=== PATIENT | female | born 1950 | race Two or more races ===

== ENCOUNTER 2022-11-13 10:54 | Emergency (ER) | payer MEDICARE, MEDICAID ==
[~2022-11-13] VITALS: Ht 157.5 cm; Wt 83.1 kg
[2022-11-13 14:20] VITALS: BP 108/66; PULSE 76; RESP 18; O2SAT 99
[2022-11-13] MEDS ORDERED: HYDROcodone-ACET 5/325MG TAB PO ONE (14:45)
[2022-11-13] MEDS ORDERED: TRAM50TA2 PO (14:47)
== END 2022-11-13 19:00 | disposition left against medical advice (07) ==
LOC: ER 10:54
DX: M62.838 Other muscle spasm (principal); M50.30 Other cervical disc degeneration, unspecified cervical region; M25.511 Pain in right shoulder; E07.9 Disorder of thyroid, unspecified
CPT/HCPCS: 72040; 72125; 73030

== ENCOUNTER 2024-07-12 12:10 | Emergency (ER) | payer MEDICARE, MEDICAID ==
[~2024-07-12] VITALS: Ht 154.9 cm; Wt 81.7 kg
[~2024-07-12 12:10] MED LIST: TRAM50TA2 PO
--- NOTE | 2024-07-12 12:29 | ED.PDOC ---
History of present illness HPI Comments 74 y.o female with PMHx of DM, HTN, hyperlipidemia, and glaucoma, presents to the ED for a chief complaint of upper abdominal pain associated with nausea and vomiting that started one day ago. Patient reports pain is constant, non radiating, and has no alleviating factors. Patient's son who brought her in stat es patient's blood glucose at home had been reading high, last reading read 580 with elevated blood pressure as well. Patient reports being compliant with medications. Son mentions 4 days ago going out to eat and believes it is due to possible food poisoning. Patient denies any dysuria, fever, chills, diarrhea, or constipation. Time Seen by MD: 12:20 Primary Care Provider: NONE History of present illness: Nurses Notes, Medications, Allergies Allergies: Coded Allergies: NO KNOWN ALLERGIES (Unverified , 11/13/22) Home Meds Active Scripts Tramadol Hcl (Tramadol Hcl) 50 Mg Tab, 0.5 TAB PO Q6HR, #5 TAB as needed for pain Prov:DIONTE RICHARDSON NP 11/13/22 Information Source: Patient, Relative Mode of Arrival: Ambulatory Timing: Days (1) Duration: Since onset History of: Diabetes Modifying factors: Nothing Associated signs and symptoms: Abdominal Pain, Nausea, Vomiting Past Medical History PAST MEDICAL HISTORY: DM, High Lipids, HTN Surgical History: Denies all surgeries [employer] History: No Pertinent [employer] History Social History Smoker: Non-Smoker Alcohol: Denies ETOH Use Drugs: Denies Drug Use Lives In: Home Constitutional: denies: chills, diaphoresis, fatigue, fever, malaise, sweats, weakness, others EENTM: denies: blurred vision, double vision, ear bleeding, ear discharge, ear drainage, ear pain, ear ringing, eye pain, eye redness, hearing loss, mouth pain, mouth swelling, nasal discharge, nose bleeding, nose congestion, nose pain, photophobia, tearing, throat pain, throat swelling, voice changes, others Respiratory: denies: cough, hemoptysis, orthopnea, SOB at rest, shortness of breath, SOB with excertion, stridor, wheezing, others Cardiovascular: denies: chest pain, dizzy spells, diaphoresis, Dyspnea on exertion, edema, irregular heart beat, left arm pain, lightheadedness, palpitations, PND, syncope, others Gastrointestinal: reports: abdominal pain, nausea, vomiting; denies: abdomen distended, blood streaked bowels, constipated, diarrhea, dysphagia, difficulty swallowing, hematemesis, melena, poor appetite, poor fluid intake, rectal bleeding, rectal pain, others Genitourinary: denies: abnormal vagina bleeding, burning, dyspareunia, dysuria, flank pain, frequency, hematuria, incontinence, pain, , vagina discharge, urgency, others Neurological: denies: dizziness, fainting, headache, left sided numbness, left sided weakness, numbness, paresthesia, pre-existing deficit, right sided numbness, right sided weakness, seizure, speech problems, tingling, tremors, weakness, others Musculoskeletal: denies: back pain, gout, joint pain, joint swelling, muscle pain, muscle stiffness, neck pain, others Integumetry: denies: bruises, change in color, change in hair/nails, dryness, laceration, lesions, lumps, rash, wounds, others Allergic/Immunocompromised: denies: Difficulty Healing, Frequent Infections, Hives, Itching, others Hematologic/Lymphatic: denies: anemia, blood clots, easy bleeding, easy bruising, swollen glands, others Endocrine: denies: excessive hunger, excessive sweating, excessive thirst, excessive urination, flushing, intolerance to cold, intolerance to heat, unexplained weight gain, unexplained weight loss, others Psychiatric: denies: anxiety, bipolar disorder, depression, hopeless, panic disorder, schizophrenia, sleepless, suicidal, others All Other Systems: Reviewed and Negative Physical Exam General Appearance: Mild Distress, Obese HEENT: Other (Pupils and face symmetric. Moist mucous membranes.) Neck: Full Range of Motion, Normal Inspection Respiratory: Lungs Clear, No Accessory Muscle Use, No Respiratory Distress, Normal Breath Sounds Cardiovascular: No Edema, No JVD, Regular Rate/Rhythm Breast Exam: Deferred Gastrointestinal: Epigastric, LUQ, RUQ, Tenderness Genitalia: Deferred Pelvic: Deferred Rectal: Deferred Extremities: Normal inspection, Normal range of motion, Non-tender, No pedal edema Neurologic: Alert (Oriented x4), Normal Affect, Normal Mood, Other (Ambulatory) Cerebellar Function: NOT DONE Reflexes: NOT DONE Skin: Dry, Normal Color, Warm Lymphatic: NOT DONE Was a procedure done? Was a procedure done?: No Differential Diagnosis (DM) Differential Diagnosis: Appendicitis, Bowel Obstruction, Dehydration, DKA, Electrolyte Abnormality, Gastritis, Gastroenteritis, Hepatitis, Hyperglycemia, Hyperosmolar State, Pancreatitis, UTI X-Ray, Labs, Meds, VS Vital Signs Date Time Temp Pulse Resp B/P (MAP) Pulse Ox O2 Delivery O2 Flow Rate FiO2 07/12/24 15:00 70 19 143/72 (95) 98 07/12/24 14:52 70 19 143/72 07/12/24 12:28 97.6 68 16 167/86 (113) 97 97.6 Lab Test 07/12/24 15:19 07/12/24 14:36 07/12/24 13:27 07/12/24 13:25 Range/Units Lactic Acid Level 2.0 2.3 *H 0.4-2.0 mmol/L Troponin I High Sensitivity 14 14 </=34 ng/L White Blood Count 10.0 4.4-10.8 10^3/uL Red Blood Count 5.30 H 4.0-5.20 10^6/uL Hemoglobin 15.8 12.2-16.2 g/dL Hematocrit 46.8 H 36.0-46.0 % Mean Corpuscular Volume 88.2 80.0-100.0 fL Mean Corpuscular Hemoglobin 29.9 28.0-32.0 pg Mean Corpuscular Hemoglobin Concent 33.9 32.0-36.0 g/dL Red Cell Distribution Width 14.4 H 11.8-14.3 % Platelet Count 159 140-450 10^3/uL Mean Platelet Volume 11.2 H 6.9-10.8 fL Neutrophils (%) (Auto) 82.1 H 37.0-80.0 % Lymphocytes (%) (Auto) 13.1 10.0-50.0 % Monocytes (%) (Auto) 3.9 0.0-12.0 % Eosinophils (%) (Auto) 0.0 0.0-7.0 % Basophils (%) (Auto) 0.9 0.0-2.0 % Neutrophils # (Auto) 8.2 1.6-8.6 10 ^3/uL Lymphocytes # (Auto) 1.3 0.4-5.4 10 ^3/uL Monocytes # (Auto) 0.4 0-1.3 10 ^3/uL Eosinophils # (Auto) 0 0-0.8 10 ^3/uL Basophils # (Auto) 0.1 0-0.2 10 ^3/uL Nucleated Red Blood Cells 0.0 % Sodium Level 132 L 136-145 mmol/L Potassium Level 4.4 3.5-5.1 mmol/L Chloride Level 99 98-107 mmol/L Carbon Dioxide Level 22 20-31 mmol/L Anion Gap 11 5-15 Blood Urea Nitrogen 32 H 9-23 mg/dL Creatinine 1.57 H 0.550-1.02 mg/dL Glomerular Filtration Rate Calc 34 >90 mL/min BUN/Creatinine Ratio 20.4 H 10.0-20.0 Serum Glucose 479 *H 74-106 mg/dL Calcium Level 10.4 8.7-10.4 mg/dL Total Bilirubin 0.7 0.2-1.0 mg/dL Aspartate Amino Transferase (AST) 20 13-40 U/L Alanine Aminotransferase (ALT) 25 7-40 U/L Alkaline Phosphatase 93 46-116 U/L B-Type Natriuretic Peptide 87.83 0-100 pg/mL Total Protein 7.5 5.7-8.2 g/dL Albumin 4.8 3.2-4.8 g/dL Lipase 2824 H 12-53 U/L Beta-Hydroxybutyric Acid 0.293 < 0.4 mmol/L Blood Gas Specimen Type Arterial Blood Gas Sample Site Left radial Blood Gas Patient Temperature 37.0 Arterial Blood Date Drawn [id number] Arterial Blood pH 7.459 H 7.350-7.450 Arterial Blood Partial Pressure CO2 29.9 L 32.0-45.0 mmHg Arterial Blood Partial Pressure O2 75.7 L 83.0-108.0 mmHg Arterial Blood HCO3 20.7 L 21.0-28.0 mmol/L Arterial Blood Oxygen Saturation 95.4 94.0-98.0 % Arterial Blood Base Excess -1.8 -2.0-3.0 mmol/L Arterial Blood Oxyhemoglobin 94.0 94.0-98.0 % Arterial Blood Carboxyhemoglobin 1.4 0.5-1.5 % Arterial Blood Methemoglobin 0.1 0.0-1.5 % Heriberto Test Yes Blood Gas Total Hemoglobin 15.20 12.0-16.0 g/dL Blood Gas Modality Room air FiO2 % 21.0 Current Medications Medications (Trade) Dose Ordered Sig/Bro Route Start Time Stop Time Status Last Admin Sodium Chloride 2,000 ml @ 1,000 mls/hr Q2H ONCE IV 07/12/24 12:30 07/12/24 14:29 DC 07/12/24 14:52 Ondansetron HCl (Zofran) 4 mg ONCE ONCE IV 07/12/24 12:30 07/12/24 12:31 DC 07/12/24 14:58 Morphine Sulfate 4 mg ONCE ONCE IV 07/12/24 12:30 07/12/24 12:31 DC 07/12/24 14:52 Pantoprazole Sodium (Protonix) 40 mg ONCE ONCE IV 07/12/24 12:30 07/12/24 12:31 DC 07/12/24 14:52 Insulin Human Regular (InsuLIN R) 10 units ONCE ONCE IV 07/12/24 12:30 07/12/24 12:31 DC 07/12/24 14:58 CLINICAL INFORMATION: Upper abdominal pain. Nausea and vomiting. TECHNIQUE: Axial CT images of the abdomen and pelvis were obtained without IV contrast. Coronal and sagittal reformatted images were obtained, reviewed, and stored. Evaluation of the parenchymal organs is limited without IV contrast. Evaluation of the bowel and mesentery is limited without oral contrast. All CT scans at this medical facility are performed using dose modulation techniques as appropriate to a performed exam including the following: Automated exposure control was utilized; adjustment of the MA and/or KV according to patient size; and use of iterative reconstruction technique. CTDIvol = 18.66 mGy DLP = 1009.88 mGy-cm COMPARISON: None FINDINGS: Lung bases: Atelectasis in the lower lobes. Respiratory motion artifact limits evaluation. Ill-defined ground-glass opacities, may be partly due to respiratory motion artifact. Infectious or inflammatory etiology not excluded Liver: Hepatic steatosis. Nonspecific ill-defined areas of lower attenuation near the gallbladder fossa, possible areas of more focal fatty infiltration, not well evaluated on noncontrast enhanced exam. Mild hepatomegaly with the liver measuring up to 16.8 cm in craniocaudal dimension at approximately the mid clavicular line Biliary: Mildly increased density in the gallbladder, may be due to sludge. Spleen: Unremarkable. Pancreas: Moderate peripancreatic inflammatory stranding small amount of fluid, suspected acute pancreatitis in the appropriate clinical setting. No organized peripancreatic fluid collection identified. Adrenal glands: Left adrenal nodule measures up to 2.5 cm with density most consistent with a lipid rich adenoma. Right adrenal nodule measures up to 1.0 cm, also most likely an adenoma. Kidneys: No hydronephrosis. Small nonobstructing left renal calculi. No obstruct ing calculi. Aorta/Vascular: Dense atherosclerotic calcification. No abdominal aortic aneurysm. Retroperitoneum: No mass or lymphadenopathy. Bowel/mesentery: Nonspecific nondilated fluid-filled small bowel loops. No small bowel obstruction. Appendix is visualized and appears unremarkable. Scattered colonic diverticula without adjacent inflammatory changes to suggest divertic ulitis. Pelvic organs: Grossly unremarkable. Bladder: Unremarkable. No mass. Abdominal wall: Diastasis of the rectus abdominis muscles. Bones: No acute fracture or suspicious intraosseous lesion. IMPRESSION: 1. Findings consistent with acute appendicitis in the appropriate clinical setting. Correlate with clinical findings. No organized peripancreatic fluid collection identified. 2. Scattered colonic diverticula without adjacent inflammatory changes to suggest diverticulitis. 3. Motion artifact limits evaluation. 4. Hepatic steatosis and mild hepatomegaly. Ill-defined area of lower density adjacent to the gallbladder fossa, possibly focal fatty infiltration. Not well evaluated on noncontrast enhanced exam. Correlate with clinical findings. Ult rasound could be obtained to further evaluate if clinically indicated 5. Possible sludge in the gallbladder 6. Bilateral adrenal nodules, most likely adenomas 7. Additional findings as described above ADDENDUM # 1 Addendum to correct error in the impression of the report. The 1st sentence of the 1st impression should state, Findings consistent with acute pancreatitis in the appropriate clinical setting. T RADIOGRAPH Indication: epig pain n/v hyperglycemia Technique: Single frontal view of the chest was obtained Comparison: None FINDINGS: Lines and Tubes: None Lungs: No focal consolidation. Right lower lung atelectasis. Pleura: No effusion. No pneumothorax. Cardiomediastinal contours: Unremarkable Bones: No acute osseous abnormality. IMPRESSION: Right lower lung zone linear atelectasis/scarring. otherwise, No acute cardiopulmonary disease. X-Ray, Labs, Meds, VS Comment 74-year-old female with a history of hypertension, dyslipidemia and diabetes complaining of epigastric pain, nausea, vomiting and hyperglycemia Vitals remarkable for BP 167/86 Exam remarkable for epigastric, left upper quadrant and right upper quadrant tenderness to palpation Rhythm strip independently interpreted by me: Sinus rhythm, rate 68, no ectopy. Chest x-ray IMPRESSION: Right lower lung zone linear atelectasis/scarring. otherwise, No acute cardiopulmonary disease. CT abdomen and pelvis: Pancreas: Moderate peripancreatic inflammatory stranding small amount of fluid, suspected acute pancreatitis in the appropriate clinical setting. No organized peripancreatic fluid collection identified. IMPRESSION: 1. Findings consistent with acute appendicitis in the appropriate clinical setting. Correlate with clinical findings. No organized peripancreatic fluid collection identified. 2. Scattered colonic diverticula without adjacent inflammatory changes to suggest diverticulitis. 3. Motion artifact limits evaluation. 4. Hepatic steatosis and mild hepatomegaly. Ill-defined area of lower density adjacent to the gallbladder fossa, possibly focal fatty infiltration. Not well evaluated on noncontrast enhanced exam. Correlate with clinical findings. Ultrasound could be obtained to further evaluate if clinically indicated 5. Possible sludge in the gallbladder 6. Bilateral adrenal nodules, most likely adenomas 7. Additional findings as described above ADDENDUM # 1 Addendum to correct error in the impression of the report. The 1st sentence of the 1st impression should state, Findings consistent with acute pancreatitis in the appropriate clinical setting. unremarkable, CMP remarkable for sodium 132, BUN 32, creatinine 1.57, glucose 479, normal anion gap. Lipase elevated at 2824, BNP and troponin negative beta hydroxybutyrate normal . Lactate 2.3, 2.0 on repeat after IV f luids. Patient treated with the following in the ED: 1 L 0.9 normal saline IV bolus, morphine 4 mg IV, Zofran 4 mg IV, Protonix 40 mg IV, regular insulin 10 units IV On re-evaluation, pain has improved, glucose repeat pending. Plan is to admit the patient for GI evaluation. Time of 1ST Reevaluation: 12:29 Reevaluation 1ST: Unchanged Patient Education/Counseling: Diagnosis, Treatment Family Education/Counseling: Diagnosis, Treatment, Prognosis Departure 1 Departure Time of Disposition: 14:58 Impression: Primary Impression: Acute pancreatitis Qualified Codes: K85.90 - Acute pancreatitis without necrosis or infection, unspecified Additional Impression: Hyperglycemia Disposition: ADMITTED INPATIENT Admit to: Med Surg Condition: Guarded Critical Care Note Critical Care Time?: No Stability Stability form required: No Heart Score Heart Score: Heart Score Response (Comments) Value History N/A 0 EKG N/A 0 Age N/A 0 Risk Factors N/A 0 Troponin N/A 0 Total 0 I personally scribed for DREW JEWELL MD ([facility]) on 07/12/24 at 12:29. Electronically submitted by Rupinder Patel ([facility]). I personally scribed for DREW JEWELL MD ([facility]) on 07/12/24 at 14:35. Electronically submitted by Rupinder Patel ([facility]). DREW JEWELL MD July 12, 2024 12:29
--- NOTE | 2024-07-12 13:35 | DVH ---
CLINICAL INFORMATION: Upper abdominal pain. Nausea and vomiting. TECHNIQUE: Axial CT images of the abdomen and pelvis were obtained without IV contrast. Coronal and s agittal reformatted images were obtained, reviewed, and stored. Evaluation of the parenchymal organs is limited without IV contrast. Evaluation of the bowel and mesentery is limited without oral contras t. All CT scans at this medical facility are performed using dose modulation techniques as appropriat e to a performed exam including the following: Automated exposure control was utilized; adjustment of the MA and/or KV according to patient size; and use of iterative reconstruction technique. CTDIvol = 18.66 mGy DLP = 1009.88 mGy-cm COMPARISON: None FINDINGS: Lung bases: Atelectasis in the lower lobes. Respiratory motion artifact limits evaluation. Ill-define d ground-glass opacities, may be partly due to respiratory motion artifact. Infectious or inflammator y etiology not excluded Liver: Hepatic steatosis. Nonspecific ill-defined areas of lower attenuation near the gallbladder fos sa, possible areas of more focal fatty infiltration, not well evaluated on noncontrast enhanced exam. Mild hepatomegaly with the liver measuring up to 16.8 cm in craniocaudal dimension at approximately the mid clavicular line Biliary: Mildly increased density in the gallbladder, may be due to sludge. Spleen: Unremarkable. Pancreas: Moderate peripancreatic inflammatory stranding small amount of fluid, suspected acute pancr eatitis in the appropriate clinical setting. No organized peripancreatic fluid collection identified. Adrenal glands: Left adrenal nodule measures up to 2.5 cm with density most consistent with a lipid r ich adenoma. Right adrenal nodule measures up to 1.0 cm, also most likely an adenoma. Kidneys: No hydronephrosis. Small nonobstructing left renal calculi. No obstructing calculi. Aorta/Vascular: Dense atherosclerotic calcification. No abdominal aortic aneurysm. Retroperitoneum: No mass or lymphadenopathy. Bowel/mesentery: Nonspecific nondilated fluid-filled small bowel loops. No small bowel obstruction. A ppendix is visualized and appears unremarkable. Scattered colonic diverticula without adjacent infla mmatory changes to suggest diverticulitis. Pelvic organs: Grossly unremarkable. Bladder: Unremarkable. No mass. Abdominal wall: Diastasis of the rectus abdominis muscles. Bones: No acute fracture or suspicious intraosseous lesion. IMPRESSION: 1. Findings consistent with acute appendicitis in the appropriate clinical setting. Correlate with cl inical findings. No organized peripancreatic fluid collection identified. 2. Scattered colonic diverticula without adjacent inflammatory changes to suggest diverticulitis. 3. Motion artifact limits evaluation. 4. Hepatic steatosis and mild hepatomegaly. Ill-defined area of lower density adjacent to the gallbla dder fossa, possibly focal fatty infiltration. Not well evaluated on noncontrast enhanced exam. Kam elate with clinical findings. Ultrasound could be obtained to further evaluate if clinically indicate d 5. Possible sludge in the gallbladder 6. Bilateral adrenal nodules, most likely adenomas 7. Additional findings as described above
[2024-07-12 13:36] LABS: Base Excess -1.8 mmol/L (-2.0-3.0)
[2024-07-12 13:41] LABS: Basophils # (auto) 0.1 10 ^3/uL (0-0.2); Basophils % (auto) 0.9 % (0.0-2.0); Eosinophils # (auto) 0 10 ^3/uL (0-0.8); Hematocrit 46.8 % (36.0-46.0); Hemoglobin 15.8 g/dL (12.2-16.2); Lymphocytes # (auto) 1.3 10 ^3/uL (0.4-5.4); Lymphocytes % (auto) 13.1 % (10.0-50.0); Mean Corpuscular Hemoglobin 29.9 pg (28.0-32.0); Mean Corpuscular Hgb Conc. 33.9 g/dL (32.0-36.0); Mean Corpuscular Volume 88.2 fL (80.0-100.0); Monocytes # (auto) 0.4 10 ^3/uL (0-1.3); Monocytes % (auto) 3.9 % (0.0-12.0); Neutrophils # (auto) 8.2 10 ^3/uL (1.6-8.6); Neutrophils % (auto) 82.1 % (37.0-80.0); Platelet Count (auto) 159 10^3/uL (140-450); Red Cell Distribution Width 14.4 % (11.8-14.3)
--- NOTE | 2024-07-12 13:49 | DVH ---
CHEST RADIOGRAPH Indication: epig pain n/v hyperglycemia Technique: Single frontal view of the chest was obtained Comparison: None FINDINGS: Lines and Tubes: None Lungs: No focal consolidation. Right lower lung atelectasis. Pleura: No effusion. No pneumothorax. Cardiomediastinal contours: Unremarkable Bones: No acute osseous abnormality. IMPRESSION: Right lower lung zone linear atelectasis/scarring. otherwise, No acute cardiopulmonary disease.
[2024-07-12 13:56] LABS: Alanine Aminotransferase 25 U/L (7-40); Albumin 4.8 g/dL (3.2-4.8); Alkaline Phosphatase 93 U/L (46-116); Anion Gap 11 (5-15); Aspartate Aminotransferase 20 U/L (13-40); BUN/Creatinine Ratio 20.4 (10.0-20.0); Carbon Dioxide 22 mmol/L (20-31); Chloride 99 mmol/L (98-107); Potassium 4.4 mmol/L (3.5-5.1); Total Protein 7.5 g/dL (5.7-8.2)
[2024-07-12 13:57] LABS: Bilirubin, Total 0.7 mg/dL (0.2-1.0)
[2024-07-12 13:59] LABS: Blood Urea Nitrogen 32 mg/dL (9-23); Calcium 10.4 mg/dL (8.7-10.4); Glucose 479 mg/dL (74-106); Lactic Acid w/Reflex 2.3 mmol/L (0.4-2.0); Sodium 132 mmol/L (136-145)
[2024-07-12 14:04] LABS: Lipase 2824 U/L (12-53)
[2024-07-12] MEDS: SODIUM CHLORIDE 0.9% 2,000 ML IV ONE (14:52)
[2024-07-12] MEDS: MORPHINE SULFATE 4 MG/ML SYR/VIAL IV ONE (14:52)
[2024-07-12] MEDS: PANTOPRAZOLE 40 MG/10 ML VIAL INJ IV ONE (14:52)
[2024-07-12] MEDS: ONDANSETRON HCL 4 MG/2 ML VIAL IV ONE (14:58)
[2024-07-12] MEDS: InsuLIN REG 1unit/0.01ml Soln (100units/ml) IV ONE (14:58)
[2024-07-12 16:11] VITALS: PULSE 70; RESP 19; O2SAT 98
[2024-07-12 17:51] VITALS: BP_SYST 134; PULSE 99; RESP 18; TEMP 98.7; O2SAT 96
--- NOTE | 2024-07-12 18:14 | DVHDS2 ---
Discharge Summary Date of Admission Date of Discharge: July 12, 2024 Labs/Diagnostic Data: Laboratory Results Test 07/12/24 16:25 07/12/24 15:19 07/12/24 14:36 07/12/24 13:27 POC Glucose 301 mg/dl (70-106) Lactic Acid Level 2.0 mmol/L (0.4-2.0) Troponin I High Sensitivity 14 ng/L (</=34) White Blood Count 10.0 10^3/uL (4.4-10.8) Red Blood Count 5.30 10^6/uL (4.0-5.20) Hemoglobin 15.8 g/dL (12.2-16.2) Hematocrit 46.8 % (36.0-46.0) Mean Corpuscular Volume 88.2 fL (80.0-100.0) Mean Corpuscular Hemoglobin 29.9 pg (28.0-32.0) Mean Corpuscular Hemoglobin Concent 33.9 g/dL (32.0-36.0) Red Cell Distribution Width 14.4 % (11.8-14.3) Platelet Count 159 10^3/uL (140-450) Mean Platelet Volume 11.2 fL (6.9-10.8) Neutrophils (%) (Auto) 82.1 % (37.0-80.0) Lymphocytes (%) (Auto) 13.1 % (10.0-50.0) Monocytes (%) (Auto) 3.9 % (0.0-12.0) Eosinophils (%) (Auto) 0.0 % (0.0-7.0) Basophils (%) (Auto) 0.9 % (0.0-2.0) Neutrophils # (Auto) 8.2 10 ^3/uL (1.6-8.6) Lymphocytes # (Auto) 1.3 10 ^3/uL (0.4-5.4) Monocytes # (Auto) 0.4 10 ^3/uL (0-1.3) Eosinophils # (Auto) 0 10 ^3/uL (0-0.8) Basophils # (Auto) 0.1 10 ^3/uL (0-0.2) Nucleated Red Blood Cells 0.0 % Sodium Level 132 mmol/L (136-145) Potassium Level 4.4 mmol/L (3.5-5.1) Chloride Level 99 mmol/L (98-107) Carbon Dioxide Level 22 mmol/L (20-31) Anion Gap 11 (5-15) Blood Urea Nitrogen 32 mg/dL (9-23) Creatinine 1.57 mg/dL (0.550-1.02) Glomerular Filtration Rate Calc 34 mL/min (>90) BUN/Creatinine Ratio 20.4 (10.0-20.0) Serum Glucose 479 mg/dL (74-106) Calcium Level 10.4 mg/dL (8.7-10.4) Total Bilirubin 0.7 mg/dL (0.2-1.0) Aspartate Amino Transferase (AST) 20 U/L (13-40) Alanine Aminotransferase (ALT) 25 U/L (7-40) Alkaline Phosphatase 93 U/L (46-116) B-Type Natriuretic Peptide 87.83 pg/mL (0-100) Total Protein 7.5 g/dL (5.7-8.2) Albumin 4.8 g/dL (3.2-4.8) Lipase 2824 U/L (12-53) Beta-Hydroxybutyric Acid 0.293 mmol/L (< 0.4) Test 07/12/24 13:25 Blood Gas Specimen Type Arterial Blood Gas Sample Site Left radial Blood Gas Patient Temperature 37.0 Arterial Blood Date Drawn [id number] Arterial Blood pH 7.459 (7.350-7.450) Arterial Blood Partial Pressure CO2 29.9 mmHg (32.0-45.0) Arterial Blood Partial Pressure O2 75.7 mmHg (83.0-108.0) Arterial Blood HCO3 20.7 mmol/L (21.0-28.0) Arterial Blood Oxygen Saturation 95.4 % (94.0-98.0) Arterial Blood Base Excess -1.8 mmol/L (-2.0-3.0) Arterial Blood Oxyhemoglobin 94.0 % (94.0-98.0) Arterial Blood Carboxyhemoglobin 1.4 % (0.5-1.5) Arterial Blood Methemoglobin 0.1 % (0.0-1.5) Heriberto Test Yes Blood Gas Total Hemoglobin 15.20 g/dL (12.0-16.0) Blood Gas Modality Room air FiO2 % 21.0 Other Laboratory Tests 07/12/24 13:27 Brief Hx & Hospital Course: 74 y.o female with PMHx of DM, HTN, hyperlipidemia, and glaucoma, presents to the ED for a chief complaint of upper abdominal pain associated with nausea and vomiting that started one day ago. Patient reports pain is constant, non radiating, and has no alleviating factors. Patient's son who brought her in states patient's blood glucose at home had been reading high, last reading read 580 with elevated blood pressure as well. Patient reports being compliant with medications. Son mentions 4 days ago going out to eat and believes it is due to possible food poisoning. Patient denies any dysuria, fever, chills, diarrhea, or constipation. Patient had hyperglycemia with diabetes but no beta hydroxy butyrate and PH more than 7.4. PH was alkalotic likely from persistent nausea and vomiting from pancreatitis. Lipase was significantly elevated, lactic acidosis was present. CT abdomen consistent with acute pancreatitis and diverticulitis ER has given: 1 L 0.9 normal saline IV bolus, morphine 4 mg IV, Zofran 4 mg IV, Protonix 40 mg IV, regular insulin 10 units IV Patient needs admission for IV antibiotics, IV fluids, fluid resuscitation, close monitoring, hyperglycemic control. Patient does not want to stay in the hospital and wants to take her chance at home. Patient is advised of risks including and accepts all risks. AMA papers provided and signed. Patient has signs on AMA Diagnosis list: Acute pancreatitis P.o. intolerance Persistent intractable nausea and vomiting Intravascular volume depletion Lactic acidosis Anion gap metabolic acidosis Intravascular volume depletion Diverticulitis, acute Diabetes with hyperglycemia Neutrophilia Hypertension Hyperlipidemia Glaucoma Patient signs out AMA accepting all risks Condition at Discharge: Undetermined Discharge Disposition: AMA Discharge Statement: "Patient was advised to return to the ER or call 911 if any headaches, dizziness, shortness of breath, chest pain, abdominal pain, bleeding, fevers, or worsening of medical condition. Patient was counseled about treatment plan, medications, possible side effects, patient�verbalized understanding. All questions were answered to the best of my ability. This discharge took greater then 30 minutes in planning, reviewing documentation, counseling the patient, and discussing with other team members." ASSESSMENT ASSESSMENT Assessment Date of Service: July 12, 2024 Billing Provider: LORA ATKINSON MD Common Visit Codes: NOT BILLABLE LORA ATKINSON MD July 12, 2024 18:14
== END 2024-07-12 18:07 | disposition left against medical advice (07) ==
LOC: ER 12:15
DX: K85.90 Acute pancreatitis without necrosis or infection, unspecified (principal); E11.65 Type 2 diabetes mellitus with hyperglycemia; I10 Essential (primary) hypertension; E78.5 Hyperlipidemia, unspecified; Z79.899 Other long term (current) drug therapy
CPT/HCPCS: 36415; 36600; 71045; 74176; 80053; 82010; 82805; 82947; 83605; 83690; 83880; 84484; 85025; 87040; 96361; 96374; 96375; 99285; J1815; J2270; J2405; J2470; J7030; 82962